=== PATIENT | male | born 1970 | race Caucasian/White ===

== ENCOUNTER 2019-08-21 19:45 | Emergency (ER) | payer OTHER, SELFPAY ==
[2019-04-11 13:02] VITALS: BMI 24.0
[2019-08-21 19:45] VITALS: BP 120/77; PULSE 55; RESP 14; TEMP 36.4; O2SAT 100; BMI 23.7
--- NOTE | 2019-08-21 20:48 | RAD_ITS ---
STUDY: X-RAY - LEFT HAND, ATTENTION THIRD FINGER REASON FOR EXAM: Male, 49 years old. Traumatic avulsion of the tip of the third finger. TECHNIQUE: 3 view(s) of the finger were obtained. COMPARISON: None. FINDINGS: Normal metacarpal head. Normal metacarpophalangeal joint. Normal proximal phalanx. Normal middle phalanx. Normal distal phalanx. Normal proximal interphalangeal joint. Normal distal interphalangeal joint. Soft tissue injury. Negative for foreign body. RAD/Finger(s) Min 2 Views IMPRESSION: Soft tissue injury at the tip of the third finger without underlying fracture, dislocation or foreign body. Electronically Signed: Camila Umanzor MD at 21:15 EDT , Service support ,
--- NOTE | 2019-08-21 21:47 | ED.DCSUM_ITS ---
- ER Visit Summary Date of Service: 08/21/19 Chief Complaint: [Injury to left long finger] History of Present Illness: The patient is a 49 M [presents to the emergency department complaint of injury to his left long finger. Patient picked up a leaf blower and somebody a take in the back of the cage that was over the blade off and patient had the fan blade hit his finger. Patient sustained a laceration. Patient unsure of his last tetanus. Patient has no medical history.] Physical Examination: [Left long finger-patient has a flap-like laceration measuring proximately 2 cm over the distal phalanx along the distal edge of the nail. Patient neurovascular intact. No significant bony tenderness.] Test Results: [X-rays of the left long finger obtained showed no fractures.] Emergency Department Course and Treatment: [Duration repair-wound sterilely draped and prepped. Using 1% lidocaine total of 6 cc used to perform a digital block. Wound cleansed with Shur-Clens and irrigated with copious saline. Several small particulate foreign bodies removed from the wound. Using 5-0 nylon a total of 4 single interrupted sutures placed to approximate the wound edges with good wound edge approximation. I was unable to approximate the wound edge leading to the nail due to the fact that the nail was there but I feel this will heal by secondary intention.] Treatment Plan: [Patient to follow-up with either primary care physician or his orthopedic surgeon to have the sutures removed in 10 days. Patient will be started on Keflex.] Disposition: [Discharged home stable condition] Impression: [2 cm laceration left long finger-simple repair] This note was generated with [employer] dictation software. It may contain incorrect words, spelling, and punctuation that were not noted in review of the chart prior to signing ED Disposition - Plan for ED Patient: Referrals: Javon Deleon MD [Primary Care Provider] -
--- NOTE | 2019-08-21 21:51 | ED.DEP ---
ED Disposition - Plan for ED Patient: Instructions: LACERATION, Hand Prescriptions: Cephalexin [Keflex] 500 mg PO Q6 #40 cap Prescription Printed Referrals: Javon Deleon MD [Primary Care Provider] - Niko Clemens DO [STAFF PHYSICIAN] - 10 Day for suture removal
[2019-08-21] MEDS: Diphth,Pertuss(Acell),Tet Vac 0.5 ML Vial IM (22:00)
[2019-08-21] MEDS: Cephalexin 250 MG Capsule 500 MG PO (22:00)
== END 2019-08-21 22:18 | disposition home or self-care (01) ==
LOC: ED 20:48
PROVIDERS: Emergency Provider Emergency Medicine; Family Provider Internal Medicine; PCP Internal Medicine
DX: S61.323A Laceration with foreign body of left middle finger with damage to nail, initial encounter (principal); W26.8XXA Contact with other sharp object(s), not elsewhere classified, initial encounter; Y93.9 Activity, unspecified; Y92.9 Unspecified place or not applicable
CPT/HCPCS: 12001; 73140; 90471; 90715; 99283

== ENCOUNTER 2021-06-28 16:18 | Emergency (ER) | payer BC, SELFPAY ==
[2019-09-03 12:15] VITALS: BMI 23.7
[2021-06-28 16:19] VITALS: BP 155/100; PULSE 59; RESP 18; TEMP 36.8; O2SAT 99; BMI 23.6
[2021-06-28] MEDS: DiphenhydrAMINE 50 MG/ML Syringe 25 MG IV (16:35)
[2021-06-28] MEDS: MethylPREDNISolone 125 MG/2 ML Vial IV (16:40)
[2021-06-28] MEDS: Famotidine 200 MG/20 ML MDV 20 MG in 0.9% Normal Saline (Pres. free 8 ML 300 MG IV (16:40)
[2021-06-28 16:58] VITALS: BP 149/96; PULSE 49; RESP 16; O2SAT 99
[2021-06-28 17:43] VITALS: BP 133/91; PULSE 53; RESP 16; O2SAT 97
[2021-06-28 18:59] VITALS: BP 110/80; PULSE 52; RESP 14; O2SAT 97
[2021-06-28 19:06] VITALS: O2SAT 97
--- NOTE | 2021-06-28 19:31 | EDS_ITS ---
HPI History of Present Illness Chief Complaint: Allergic Reaction Narrative Narrative: Patient presents with swelling around the eyes, feeling the throat swelling after ingesting soy milk. 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 He has an EpiPen but did not have it on him. He has no fevers or chills. He does not have any nausea or vomiting. This happened about 1015 minutes prior to arrival. [facility] Medical History (Updated 06/28/21 @ 19:[address] Migue Smith MD) Seasonal allergies Home Medications cephalexin 500 mg PO Q6 #40 cap 08/21/19 [Rx Last Taken Unknown] prednisone 50 mg PO DAILY #5 tab 06/28/21 [Rx Last Taken Unknown] Allergy/AdvReac Type Severity Reaction Status Date / Time No Known Allergies Allergy Unverified 08/21/19 19:49 Family History (Updated 04/11/19 @ 13:03 by Kia Odom) Other Hypertension Social History (Updated 04/11/19 @ 13:05 by Srikanth WINTER, PA) Smoking Status: Never smoker alcohol intake: never ROS ROS ED ROS Narrative Past medical history: Reviewed Medications: Reviewed Social history: Noncontributory Review of systems: All systems negative except as indicated General: No fever Eyes: Edema all the way around his eyes ENT: Feeling of throat closing Neck: No neck pain Cardiovascular: No chest pain Respiratory: Some difficulty breathing. Gastrointestinal: No abdominal pain, nausea vomiting or diarrhea Genitourinary: No dysuria Musculoskeletal: Denies myalgias no difficulty with ambulation Skin: Edema around the face no other rash Neurological: No memory loss, confusion or any focal weakness Psych: No recent behavioral changes Hematologic: No easy bleeding or easy bruising EXAM Physical Exam Narrative Exam Narrative: Physical exam General: Patient appears in some distress Head: Normocephalic, Atraumatic Eyes: Significant edema around the eyes I cannot open them to see ENT: Moist mucous membranes. He has a normal voice but some swelling around the tongue posterior oropharynx is normal. Neck: Supple, Nontender, No lymphadenopathy Cardiovascular: Regular rate, Regular rhythm Respiratory: No distress, CTA bilaterally. No wheezing. No stridor. Abdomen: Soft, Nontender, Nondistended Back: Nontender, Normal Inspection. Negative for: CVA tenderness Extremities: Nontender, No edema Skin: Normal color, No rash Neurological: Alert, Normal Strength, Normal Sensation Psychological: Normal affect Const Vital Signs: 06/28/21 16:19 06/28/21 16:58 06/28/21 17:43 Temperature 98.2 F Temperature Source Oral Pulse Rate 59 L 49 L 53 L Respiratory Rate 18 16 16 Blood Pressure 155/100 H 149/96 H 133/91 H Blood Pressure Mean 118 113 105 Pulse Ox 99 99 97 Oxygen Delivery Method Room Air Room Air Room Air 06/28/21 18:59 06/28/21 19:06 Temperature Temperature Source Pulse Rate 52 L Respiratory Rate 14 Blood Pressure 110/80 Blood Pressure Mean 90 Pulse Ox 97 97 Oxygen Delivery Method Room Air Room Air MDM MDM MDM Narrative Medical decision making narrative: Patient meets criteria for anaphylaxis, epinephrine was given as well as Solu-Medrol, Benadryl and Pepcid. He improved he was observed in the ED and will be discharged. He is told to have his EpiPen near him at all times. Critical Care Time Critical care time (excluding procedures): 30-74 minutes, Including time spent:, Discussing w/Patient &/or Family/Supervisor Special Services, Performing Direct Patient Care at Bedside and - (35 min) Discharge Plan Triage Chief Complaint: Allergic Reaction ED Provider: Migue Smith Dx/Rx/DC Orders Clinical Impression: Anaphylaxis Prescriptions: New prednisone 50 mg tablet 50 mg PO DAILY Qty: 5 RF: 0 No Action cephalexin 500 MG capsule 500 mg PO Q6 Qty: 40 RF: 0 Primary Care Provider: Javon Deleon Referrals: Javon Deleon MD [Primary Care Provider] - 2 Days Disposition Disposition: Home, Self Care
[2021-06-28] MEDS: predniSONE 20 MG Tablet 40 MG PO (20:01)
== END 2021-06-28 20:04 | disposition home or self-care (01) ==
PROVIDERS: Emergency Provider Emergency Medicine; PCP Internal Medicine
DX: T78.09XA Anaphylactic reaction due to other food products, initial encounter (principal)
CPT/HCPCS: 96372; 96374; 96375; 99284; A4216; J3490

== ENCOUNTER → 2022-10-13 | Outpatient (CLI) | payer BC, SELFPAY ==
[2022-10-16 07:48] LABS: Calprotectin, Stool 69 ug/g (0-120)
== END | disposition home or self-care (01) ==
PROVIDERS: PCP Internal Medicine
DX: R19.5 Other fecal abnormalities (principal)
CPT/HCPCS: 83993